=== PATIENT | male | born 1950 | race Caucasian/White ===

== ENCOUNTER 2020-05-14 13:00 | Emergency (ER) | payer MEDICARE, MEDICAID ==
[~2020-05-14] VITALS: Ht 177.8 cm; Wt 58.6 kg
[~2020-05-14 13:00] MED LIST: PRED20TA PO
--- NOTE | 2020-05-14 13:41 | NUR ---
PT TO XRAY
--- NOTE | 2020-05-14 14:11 | NUR ---
PT IS 69 YO MALE C/O LEFT SHOULDER PAIN SINCE GRD LEVEL FALL 04/19, +CMS TO LEFT HAND, SLING IN PLACE, WAITING FOR ORTHO CONSULT,
[2020-05-14 14:42] VITALS: BP 157/78
== END 2020-05-14 14:39 | disposition home or self-care (01) ==
LOC: ER 13:01
DX: S42.255A Nondisplaced fracture of greater tuberosity of left humerus, initial encounter for closed fracture (principal); M25.512 Pain in left shoulder; M25.532 Pain in left wrist; R58 Hemorrhage, not elsewhere classified; I10 Essential (primary) hypertension; I25.2 Old myocardial infarction; J44.9 Chronic obstructive pulmonary disease, unspecified; G89.29 Other chronic pain; F10.10 Alcohol abuse, uncomplicated; Z79.899 Other long term (current) drug therapy; Z86.73 Personal history of transient ischemic attack (TIA), and cerebral infarction without residual deficits; W01.0XXA Fall on same level from slipping, tripping and stumbling without subsequent striking against object, initial encounter; Y93.89 Activity, other specified; Y99.8 Other external cause status; Y92.89 Other specified places as the place of occurrence of the external cause; Y90.9 Presence of alcohol in blood, level not specified
CPT/HCPCS: 73030; 99283

== ENCOUNTER 2023-03-03 23:19 | Emergency (ER) | payer MEDICARE, MEDICAID ==
[~2023-03-03] VITALS: Ht 177.8 cm; Wt 60.0 kg
--- NOTE | 2023-03-04 01:58 | NUR ---
He tells me that last year he fell and broke his shoulder in 3 places and that he needs a head CT because his equilibrium is off. He uses a walking stick and had no troubles talking to me, turning to look at me, or getting out of the wheelchair by himself. got onto the stretcher by himself. Informed him he can talk to the MD about his needs. I'm a nurse.
[2023-03-04] MEDS ORDERED: predniSONE 20 mg tablet PO ONE (02:30)
[2023-03-04] MEDS ORDERED: albuterol 2.5 MG/3 ML nebule NEB ONE (02:30)
[2023-03-04 03:14] LABS: BASOPHILS # (AUTO) 0.1 X10'3 (0-0.2); BASOPHILS % (AUTO) 0.6 % (0-1); EOSINOPHILS # (AUTO) 0.3 X10'3 (0-0.9); HEMATOCRIT 43.8 % (42.0-52.0); HEMOGLOBIN 14.9 g/dl (14.0-17.9); LYMPHOCYTES # (AUTO) 3.2 X10'3 (1.1-4.8); LYMPHOCYTES % (AUTO) 30.1 % (21-51); MEAN CORPUSCULAR HEMOGLOBIN 33.3 PG (27.0-31.0); MEAN PLATELET VOLUME 6.6 FL (7.4-10.4); MONOCYTES # (AUTO) 1.2 X10'3 (0-0.9); MONOCYTES % (AUTO) 11.6 % (2-12); NEUTROPHILS # (AUTO) 5.8 X10'3 (1.8-7.7); NEUTROPHILS % (AUTO) 54.7 % (42-75); PLATELET COUNT 337 X10'3 (140-440); RED BLOOD COUNT 4.47 X10'6 (4.70-6.10); WHITE BLOOD COUNT 10.7 X10'3 (4.5-11.0)
[2023-03-04 03:18] LABS: ALANINE AMINOTRANSFERASE 22 U/L (12-78); ALBUMIN 3.8 G/DL (3.4-5.0); ALBUMIN/GLOBULIN RATIO 1.1 (1.1-1.5); ALKALINE PHOSPHATASE 79 IU/L (46-116); ANION GAP 14 (8-16); ASPARTATE AMINO TRANSFERASE 23 U/L (10-37); BILIRUBIN,TOTAL 0.3 MG/DL (0.1-1.0); BLOOD UREA NITROGEN 5 MG/DL (7-18); BUN/CREATININE RATIO 5.5 (10.0-20.0); CALCIUM 8.2 MG/DL (8.5-10.1); CHLORIDE 105 MMOL/L (99-107); CREATININE 0.91 MG/DL (0.60-1.10); GLUCOSE 79 MG/DL (70-104); POTASSIUM 3.8 MMOL/L (3.5-5.1); SODIUM 144 MMOL/L (135-145); TOTAL CARBON DIOXIDE 24.9 MMOL/L (24-32); TOTAL PROTEIN 7.2 G/DL (6.4-8.2); eGFR 82 ML/MIN
[2023-03-04 03:22] LABS: ETHANOL 0.099 GM/DL (0.0-0.010)
[2023-03-04 03:46] LABS: CLARITY,URINE CLEAR (Clear); COLOR,URINE YELLOW (Yellow); GLUCOSE, URINE NEGATIVE (Neg); KETONES,URINE NEGATIVE (Neg); LEUKOCYTE ESTERASE ,URINE NEGATIVE (Neg); NITRITES, URINE NEGATIVE (Neg); OCCULT BLOOD,URINE TRACE-INTACT (Neg); PH,URINE 5.5 (4.8-8.0); PROTEIN,URINE NEGATIVE (Neg); UROBILINOGEN,URINE 0.2 E.U/dL (0.2-1.0)
[2023-03-04 03:53] LABS: UA COLLECTION TYPE VOIDED
[2023-03-04 03:54] LABS: SQUAMOUS EPITHELIAL CELL,UR FEW /LPF (FEW)
[2023-03-04 03:55] LABS: BACTERIA,URINE NONE SEEN /HPF (Neg); RBC,URINE 0-2 /HPF (0-2); WBC,URINE 0-4 /HPF (0-4)
[2023-03-04 03:59] VITALS: BP 157/86
[2023-03-04] MEDS ORDERED: PRED20TA PO (04:09)
[2023-03-04] MEDS ORDERED: AZIT-164 PO (04:09)
[2023-03-04] MEDS ORDERED: ALBU8HFA PO (04:13)
== END 2023-03-04 04:19 | disposition home or self-care (01) ==
LOC: ER 23:22
DX: J44.1 Chronic obstructive pulmonary disease with (acute) exacerbation (principal); F10.129 Alcohol abuse with intoxication, unspecified; F07.81 Postconcussional syndrome; I10 Essential (primary) hypertension; J44.9 Chronic obstructive pulmonary disease, unspecified; Y90.9 Presence of alcohol in blood, level not specified
CPT/HCPCS: 36415; 70450; 71045; 80053; 80320; 81001; 82140; 84484; 85025; 93005; 94640; 99285; J7512; 94760

== ENCOUNTER 2023-07-11 20:01 | Emergency (ER) | payer MEDICARE, MEDICAID ==
[~2023-07-11] VITALS: Ht 177.8 cm; Wt 63.6 kg
[2023-07-11 20:05] VITALS: TEMP 98.1
--- NOTE | 2023-07-11 20:22 | NUR ---
BESSY CALLED BY THIS RN, PT WANTING TO FILE REPORT W PD. LOGGED CASE # PER BESSY IS [id number]
--- NOTE | 2023-07-11 20:51 | NUR ---
MD AWARE OF PT STATUS, AWAITING ORDERS STILL.
[2023-07-11] MEDS ORDERED: normal saline 1000ML IV soln IVB ONE (20:55)
--- NOTE | 2023-07-11 20:59 | NUR ---
BESSY DENG AT BEDSIDE W PT
[2023-07-11] MEDS ORDERED: iohexol 300mg/ml 100ml inj. ONE (21:00)
[2023-07-11] MEDS ORDERED: ondansetron/PF 4mg/2ml inj IV ONE (21:00)
[2023-07-11] MEDS ORDERED: morphine 4 MG/ML inj SYRINge IV ONE (21:00)
[2023-07-11] MEDS ORDERED: NO HOME MEDS (21:16)
[2023-07-11 21:20] LABS: BILIRUBIN,URINE NEGATIVE (Neg); CLARITY,URINE CLEAR (Clear); COLOR,URINE STRAW (Yellow); GLUCOSE, URINE NEGATIVE (Neg); KETONES,URINE NEGATIVE (Neg); LEUKOCYTE ESTERASE ,URINE NEGATIVE (Neg); NITRITES, URINE NEGATIVE (Neg); OCCULT BLOOD,URINE TRACE-INTACT (Neg); PROTEIN,URINE NEGATIVE (Neg); UROBILINOGEN,URINE 0.2 E.U/dL (0.2-1.0)
[2023-07-11 21:24] LABS: UA COLLECTION TYPE CLN CATCH MIDSTREAM
[2023-07-11 21:25] LABS: SQUAMOUS EPITHELIAL CELL,UR NONE SEEN /LPF (FEW)
[2023-07-11 21:26] LABS: BACTERIA,URINE FEW /HPF (Neg); RBC,URINE 0-2 /HPF (0-2); WBC,URINE 0-4 /HPF (0-4)
[2023-07-11 21:34] LABS: ALANINE AMINOTRANSFERASE 26 U/L (12-78); ALBUMIN/GLOBULIN RATIO 1.1 (1.1-1.5); ALKALINE PHOSPHATASE 81 IU/L (46-116); ANION GAP 11 (8-16); ASPARTATE AMINO TRANSFERASE 35 U/L (10-37); BILIRUBIN,TOTAL 0.5 MG/DL (0.1-1.0); BLOOD UREA NITROGEN 5 MG/DL (7-18); BUN/CREATININE RATIO 5.5 (10.0-20.0); CALCIUM 9.5 MG/DL (8.5-10.1); CHLORIDE 105 MMOL/L (99-107); CREATININE 0.91 MG/DL (0.60-1.10); GLUCOSE 89 MG/DL (70-104); SODIUM 143 MMOL/L (135-145); TOTAL CARBON DIOXIDE 27.5 MMOL/L (24-32); TOTAL PROTEIN 7.7 G/DL (6.4-8.2); eCRCL 66 ML/MIN; eGFR 82 ML/MIN
[2023-07-11 21:35] LABS: URINE AMPHETAMINE SCREEN NEGATIVE (Neg); URINE BARBITUATE SCREEN NEGATIVE (Neg); URINE BENZODIAZEPINES SCREEN NEGATIVE (Neg); URINE CANNABINOID SCREEN POSITIVE (Neg); URINE COCAINE SCREEN NEGATIVE (Neg); URINE OPIATE SCREEN NEGATIVE (Neg); URINE PHENCYCLIDINE SCREEN NEGATIVE (Neg)
[2023-07-11 21:36] LABS: ETHANOL 166 MG/DL (<10)
[2023-07-11 22:29] LABS: HEMOGLOBIN 14.6 g/dl (14.0-17.9); MEAN CORPUSCULAR VOLUME 98.9 FL (78-98); MEAN PLATELET VOLUME 6.9 FL (7.4-10.4)
[2023-07-11 22:31] LABS: BASOPHILS # (AUTO) 0.1 X10'3 (0-0.2); BASOPHILS % (AUTO) 0.3 % (0-1); EOSINOPHILS % (AUTO) 0.1 % (0-6); HEMATOCRIT 43.7 % (42.0-52.0); LYMPHOCYTES # (AUTO) 1.5 X10'3 (1.1-4.8); MEAN CORPUSCULAR HGB CONC 33.3 g/dL (33.0-36.5); MONOCYTES # (AUTO) 1.8 X10'3 (0-0.9); MONOCYTES % (AUTO) 7.5 % (2-12); NEUTROPHILS % (AUTO) 86.1 % (42-75); PLATELET COUNT 302 X10'3 (140-440); RED BLOOD COUNT 4.42 X10'6 (4.70-6.10); RED CELL DISTRIBUTION WIDTH 13.4 % (11.5-14.5); WHITE BLOOD COUNT 24.4 X10'3 (4.5-11.0)
[2023-07-11] MEDS ORDERED: HYDR-3965 PO (22:48)
--- NOTE | 2023-07-11 23:24 | NUR ---
PT ATTEMPTING TO URINATE IN URINAL AT BEDSIDE BEFORE BEING STRAIGHT CATH'D. 1000ML OUT ON SHIFT SO FAR. BLADDER SCANNER SHOWED >448 STILL.
--- NOTE | 2023-07-11 23:30 | NUR ---
PT URINATED 150, REFUSING TO BE STRAIGHT CATH'S. AWARE.
--- NOTE | 2023-07-11 23:38 | NUR ---
[facility] CALLED FOR PT, 90 MIN ETA
--- NOTE | 2023-07-11 23:52 | NUR ---
[facility] CANCELLED, [facility] TO COME ANATOMIC PATHOLOGY ASSISTANT PT D/T PT NEEDING HELP TO GET INSIDE HOME.
[2023-07-11 23:59] VITALS: BP 128/65; PULSE 90; RESP 16; O2SAT 95
== END 2023-07-12 00:18 | disposition home or self-care (01) ==
LOC: ER 20:02
DX: S16.1XXA Strain of muscle, fascia and tendon at neck level, initial encounter (principal); I10 Essential (primary) hypertension; J44.9 Chronic obstructive pulmonary disease, unspecified; F10.129 Alcohol abuse with intoxication, unspecified; R33.9 Retention of urine, unspecified; Z79.899 Other long term (current) drug therapy; W19.XXXA Unspecified fall, initial encounter; Y93.89 Activity, other specified; Y92.89 Other specified places as the place of occurrence of the external cause; Y99.8 Other external cause status; Y90.9 Presence of alcohol in blood, level not specified
CPT/HCPCS: 36415; 70450; 71045; 71260; 72125; 72131; 74177; 80053; 80305; 80320; 81001; 82140; 82948; 84484; 85025; 93005; 96361; 96374; 96375; 99285; J2270; J2405; J3490; J7030; Q9967